=== PATIENT | female | born 1945 | race Two or more races ===

== ENCOUNTER → 2025-02-10 | Outpatient (CLI) | payer MEDICARE, MEDICAID, SELFPAY ==
--- NOTE | 2025-02-10 11:45 | XR_ITS ---
Examination: Screening digital mammography, bilateral Computer aided detection 3-D breast Tomosynthesis, bilateral Date and time of exam: February 10, 2025 1147 hours Compared to mammograms dating to January 20, 2019 Indication: Screening Technique: Nonmagnified MLO, CC views of the breasts to been obtained, reconstructed from 3-D Tomosynthesis images. R2 computer aided detection program utilized for evaluation of suspicious masses and/or abnormal calcifications. 3-D Tomosynthesis images obtained. Findings: Scattered areas of fibroglandular density. Benign calcifications. No interval suspicious masses Impression: BI-RADS category II: Benign Findings. Recommend 1 year follow-up mammogram.
== END | disposition home or self-care (01) ==
LOC: CDIM 11:40
PROVIDERS: Referring Provider Family Medicine; Visit Provider Family Medicine
DX: Z12.31 Encounter for screening mammogram for malignant neoplasm of breast (principal); R92.323 Mammographic fibroglandular density, bilateral breasts; R92.1 Mammographic calcification found on diagnostic imaging of breast
CPT/HCPCS: 77063; 77067

== ENCOUNTER → 2025-03-07 | Outpatient (CLI) | payer MEDICARE, MEDICAID, SELFPAY ==
--- NOTE | 2025-03-07 09:15 | XR_ITS ---
Examination: Esophagram standard Fluoroscopy 14 spot fluoroscopic films of the esophagus Upright PA chest single view Upright soft tissue lateral neck single view Date and time: March 07, 2025 0900 hours INDICATIONS: Cervical spine surgery 2019, dysphagia and choking beginning one year ago. TECHNIQUE AND FINDINGS: Upright PA chest demonstrates normal heart size. Lungs are clear Soft tissue lateral neck demonstrates cervical fusion C4-C6 with anatomic alignment Patient swallowed thin barium with 14 spot fluoroscopic films of the esophagus Primary peristaltic esophageal waves Numerous secondary and tertiary esophageal contractions Continuous moderate gastroesophageal reflux Stricture the gastroesophageal junction, 70% Large retrocardiac gastric hernia IMPRESSION: Significant esophageal dysmotility Moderate continuous gastroesophageal reflux 70% stricture at the gastroesophageal junction, likely related to reflux esophagitis
== END | disposition home or self-care (01) ==
LOC: CDIM 09:02
PROVIDERS: PCP Family Medicine; Referring Provider Nurse Practitioner Family; Visit Provider Nurse Practitioner Family
DX: K21.9 Gastro-esophageal reflux disease without esophagitis (principal); K22.2 Esophageal obstruction
CPT/HCPCS: 74220; A4649

== ENCOUNTER → 2025-04-25 | Outpatient (CLI) | payer MEDICARE, MEDICAID, SELFPAY ==
--- NOTE | 2025-04-25 15:17 | EKG_ITS ---
[facility] Test Date: 2025-04-25 Pat Name: MICHELLE BULLOCK Department: Room: - Gender: Female [employer]: FERD[place] : 1945 Requested By: Destin Augustin Order Number: [id number] Reading MD: Destin Augustin Measurements Intervals [place] Rate: 62 P: 40 NE: 188 QRS: -12 QRSD: 81 T: -4 QT: 437 QTc: 444 Interpretive Statements SINUS RHYTHM No previous ECG available for comparison /[id number]
== END | disposition home or self-care (01) ==
PROVIDERS: PCP Family Medicine; Referring Provider Student in an Organized Health Care Education/Training Program; Visit Provider Student in an Organized Health Care Education/Training Program
DX: Z01.810 Encounter for preprocedural cardiovascular examination (principal); H25.811 Combined forms of age-related cataract, right eye
CPT/HCPCS: 93005